=== PATIENT | male | born 1960 | race Hispanic/Latino ===

== ENCOUNTER 2023-09-01 12:07 | Emergency (ER) | payer SELFPAY | END 2023-09-01 12:48 | disposition home or self-care (01) | LOC: BURERS 12:07 | DX: G51.0 Bell's palsy (principal); I10 Essential (primary) hypertension; E11.9 Type 2 diabetes mellitus without complications; Z79.899 Other long term (current) drug therapy; Z79.84 Long term (current) use of oral hypoglycemic drugs | CPT/HCPCS: 70450 ==